=== PATIENT | male | born 1985 | race Caucasian/White ===

== ENCOUNTER 2019-05-16 21:15 | Emergency (ER) | payer BC ==
[2019-05-16 21:19] VITALS: BP 142/85; PULSE 82; RESP 16; TEMP 98.8
[2019-05-16] MEDS ORDERED: IBUPROFEN 600 MG TAB PO STA (21:28)
--- NOTE | 2019-05-16 21:38 | ED ---
General Adult HPI - General Chief complaint: Extremity Injury, Lower Stated complaint: Fall Time Seen by Provider: 05/16/19 21:25 Source: patient, RN notes reviewed Mode of arrival: wheelchair Limitations: no limitations - History of Present Illness Initial comments: 33-year-old male with a past history of melanoma presents to the emergency department for left ankle pain. Patient states just prior to arrival he was walking down some stairs outside and slipped on some ice. States he inverted his left ankle. States he is unable to bear weight on the left ankle secondary to pain. Denies any weakness of the left leg. Denies any pain in the left foot. Denies any loss of sensation of the left foot or ankle.Patient has no other complaints at this time including shortness of breath, chest pain, abdominal pain, nausea or vomiting, headache, or visual changes. - Related Data Allergies Allergy/AdvReac Type Severity Reaction Status Date / Time No Known Allergies Allergy Verified 05/16/19 21:19 Review of Systems ROS Statement: Those systems with pertinent positive or pertinent negative responses have been documented in the HPI. ROS Other: All systems not noted in ROS Statement are negative. Past Medical History Past Medical History: Cancer Additional Past Medical History / Comment(s): melanoma History of Any Multi-Drug Resistant Organisms: None Reported Additional Past Surgical History / Comment(s): skin cancer surgery Past Psychological History: No Psychological Hx Reported Smoking Status: Current every day smoker Past Alcohol Use History: Occasional Past Drug Use History: None Reported General Exam Limitations: no limitations General appearance: alert, in no apparent distress Head exam: Present: atraumatic, normocephalic, normal inspection Eye exam: Present: normal appearance, PERRL, EOMI. Absent: scleral icterus, conjunctival injection, periorbital swelling ENT exam: Present: normal exam, mucous membranes moist Neck exam: Present: normal inspection, full ROM. Absent: tenderness, meningismus, lymphadenopathy Respiratory exam: Present: normal lung sounds bilaterally. Absent: respiratory distress, wheezes, rales, rhonchi, stridor Cardiovascular Exam: Present: regular rate, normal rhythm, normal heart sounds. Absent: systolic murmur, diastolic murmur, rubs, gallop, clicks Extremities exam: Present: full ROM (Patient has full plantar and dorsiflexion of the left ankle), tenderness (Tenderness is noted to the proximal lateral malleolus. No tenderness to the left foot. No navicular or fifth metatarsal tenderness. No tenderness to the medial malleolus. No tenderness to the proximal lower leg.), normal capillary refill (Capillary refill is 2 seconds, pedal pulse 2+ left lower extremity.), joint swelling (Sightly some mild edema noted of the lateral malleolus. No ecchymosis.), other (Sensation intact the left lower extremity). Absent: pedal edema, calf tenderness Course Vital Signs 05/16/19 21:16 Temperature 98.8 F Pulse Rate 82 Respiratory 16 Rate Blood Pressure 142/85 O2 Sat by Pulse 97 Oximetry Procedures - Orthopedic Splinting/Casting Injury #1 Side: left Lower Extremity Injury Location: short leg Lower Extremity Immobilizer: stirrup splint Additional Comments: Neurovascular status intact after splint applied Medical Decision Making - Medical Decision Making X-rays are negative. However patient unable to bear weight. Was splinted in a stirrup splint. Will follow-up with orthopedics in one to 2 days. Disposition Clinical Impression: Ankle pain, left Disposition: HOME SELF-CARE Condition: Good Instructions (If sedation given, give patient instructions): Ankle Sprain (ED) Additional Instructions: Please take Motrin and Tylenol for pain. Please follow-up with primary care and orthopedics in one to 2 days. Rest ice and elevate the left ankle. Return to the emergency department if you have any worsening symptoms. Is patient prescribed a controlled substance at d/c from ED?: No Referrals: Lito Win MD [Primary Care Provider] - 1-2 days Osito Alberto DO [Doctor of Osteopathic Medicine] - 1-2 days Time of Disposition: 22:03
--- NOTE | 2019-05-16 22:00 | XR ---
EXAMINATION TYPE: XR foot complete LT DATE OF EXAM: 05/16/2019 COMPARISON: None HISTORY: Fall, pain TECHNIQUE: Three-view left foot FINDINGS: No acute fractures or dislocations are evident. Soft tissues are normal. Joint spaces are p reserved. Achilles tendon calcaneal heel spur is present. Follow-up studies can be performed 7-10 days from acute trauma for continued pain IMPRESSION: 1. No acute osseous abnormality left foot
--- NOTE | 2019-05-16 22:01 | XR ---
EXAMINATION TYPE: XR ankle complete LT DATE OF EXAM: 05/16/2019 COMPARISON: None HISTORY: Fall, pain TECHNIQUE: Three-view left ankle FINDINGS: Achilles tendon calcaneal heel spur is present. The ankle mortise is intact. Soft tissues are normal. No acute fractures or dislocations are evident. Follow-up studies can be performed 7-10 days from acute trauma for continued pain. IMPRESSION: 1. Normal three-view left ankle
== END 2019-05-16 22:25 | disposition home or self-care (01) ==
LOC: EC 21:15
DX: M25.572 Pain in left ankle and joints of left foot (principal); R60.0 Localized edema; F17.200 Nicotine dependence, unspecified, uncomplicated; Z85.820 Personal history of malignant melanoma of skin; Z98.890 Other specified postprocedural states; W00.1XXA Fall from stairs and steps due to ice and snow, initial encounter; Y93.01 Activity, walking, marching and hiking; Y92.008 Other place in unspecified non-institutional (private) residence as the place of occurrence of the external cause
CPT/HCPCS: 29515; 99283